=== PATIENT | male | born 1965 | race Two or more races ===

== ENCOUNTER 2020-11-18 23:02 | Emergency (ER) | payer SELFPAY ==
[~2020-11-18] VITALS: Ht 170.2 cm; Wt 87.3 kg
[2020-11-19 04:00] VITALS: BP 147/85
== END 2020-11-19 04:00 | disposition home or self-care (01) ==
LOC: EMS 23:02
DX: F10.129 Alcohol abuse with intoxication, unspecified (principal); Y90.8 Blood alcohol level of 240 mg/100 ml or more
CPT/HCPCS: 36415; 82962; 99285; G0480